=== PATIENT | male | born 1955 | race Caucasian/White ===

== ENCOUNTER 2017-03-08 12:31 | Emergency (ER) | payer OTHER ==
[~2017-03-08] VITALS: Ht 167.6 cm; Wt 90.0 kg
[~2017-03-08 12:31] MED LIST: FINA5TAB4 PO; GEMF600T60 PO; GLIM4TAB PO; INSU100C SQ; LANT3I SC; METO-429 PO; OMEP20CA16 PO; SITA1TAB5 PO; TAMS-14 PO
[2017-03-08 12:35] VITALS: Ht 167.6 cm; Wt 90.0 kg
[2017-03-08] MEDS ORDERED: FLUORESCEIN STRIP RIGHT EYE ONE (13:00)
[2017-03-08] MEDS ORDERED: TETRACAINE 0.5% 4 ML OPH RIGHT EYE ONE (13:00)
[2017-03-08] MEDS ORDERED: CLIN-73 PO (13:25)
[2017-03-08] MEDS ORDERED: VIGA RIGHT EYE (13:25)
--- NOTE | 2017-03-08 14:06 | ERD ---
ER Documentation Chief Complaint Chief Complaint pt bib family with c/o right eye reddness x 2 days, no vision problems HPI 62-year-old male history of type 2 diabetes comes in the right eye redness and drainage for 2 days. The patient describes burning type of pain, with foreign body sensation and describes yellow to white discharge from the eye. He has used Polytrim eyedrops so far for less than 24 hours prescribed by his primary care doctor when he had called about his symptoms. He has used 3 drops without any. History of visual changes from chronic process, diabetes, but denies any acute visual changes. He denies any trauma to the eye, diplopia. ROS All systems reviewed and are negative except as per history of present illness. Medications Home Meds Active Scripts Moxifloxacin Hcl* (Vigamox*) 0.5% - 3 Ml Opht, 1 DROP RIGHT EYE TID, #1 EA Prov:KARINA JAIN PA-C 03/08/17 Clindamycin Hcl* (Clindamycin Hcl*) 300 Mg Capsule, 300 MG PO TID for 7 Days, CAP Prov:KARINA JAIN PA-C 03/08/17 Reported Medications Insulin Lispro (Humalog) 100 Unit/1 Ml Cartridge, 0 SQ WITH MEALS 12/13/15 Sitagliptin Phos/Metformin HCl (Janumet 50-1,000 mg Tablet) 1 Each Tablet, 1 EACH PO BID, TAB 12/13/15 Finasteride* (Finasteride*) 5 Mg Tablet, 5 MG PO DAILY, TAB 12/13/15 Tamsulosin Hcl* (Flomax*) 0.4 Mg Cap.er.24h, 0.4 MG PO BID, CAP 12/13/15 Omeprazole* (Omeprazole*) 20 Mg Capsule.dr, 20 MG PO DAILY, #30 CAP 12/13/15 Gemfibrozil* (Gemfibrozil*) 600 Mg Tablet, 600 MG PO BID, TAB 12/13/15 Insulin Glargine* (Lantus*) 100 Unit/Ml Soln, 20-25 UNIT SC QHS, #1 VIAL 12/13/15 Glimepiride* (Glimepiride*) 4 Mg Tablet, 4 MG PO DAILY, TAB 06/04/14 Metoprolol Tartrate* (Lopressor*) 50 Mg Tab, 50 MG PO BID, TAB 06/04/14 Allergies Allergies: Coded Allergies: No Known Allergy (Unverified , 12/13/15) PMhx/Soc History of Surgery: No Anesthesia Reaction: No Hx Neurological Disorder: No Hx Respiratory Disorders: No Hx Cardiac Disorders: Yes (HTN; HYPERLIPIDEMIA) Hx Psychiatric Problems: No Hx Miscellaneous Medical Probl: Yes (TYPE 1 DM) Hx Alcohol Use: No Hx Substance Use: No Hx Tobacco Use: No Smoking Status: Never smoker Physical Exam Vitals Vital Signs Date Time Temp Pulse Resp B/P Pulse Ox O2 Delivery O2 Flow Rate FiO2 03/08/17 12:35 98.3 84 18 176/84 99 Physical Exam General: Well-developed, well-nourished. The patient appears in no acute distress. HEENT: Head is normocephalic, atraumatic. No scleral icterus. Eye Exam: Visual [place]: Intact in all four quadrants bilaterally Lac ducts/glands: right lower eyelid is edematous, mild. Left eye is normal. Lids w/ evertion: Normal, no foreign body Conj/[place]: There is injection, negative Fluorescein/Andrea's Anterior Chamber: Clear Tonopen readings: 26 and 22 Eyes are equal and reactive to light. Extraocular movements are intact without any pain. Neck: Supple. Nontender. Lungs: Clear to auscultation. Normal air movement. Heart: Regular rate and rhythm. S1 and S2 are normal. No murmurs, gallops, or rubs. Abdomen: Nondistended. Extremities: No clubbing or cyanosis. Moving extremities x 4. No weakness. Neurologic: Alert and oriented 3. No focal deficits. Normal speech and gait. Skin: Normal turgor. No rash or lesions. Results 24 hrs Current Medications Medications (Trade) Dose Ordered Sig/Lillian Route PRN Reason Start Time Stop Time Status Last Admin Dose Admin Fluorescein Sodium (Yilzd-V-Daxmh) 1 strip ONCE ONCE RIGHT EYE 03/08/17 13:00 03/08/17 13:02 DC Tetracaine HCl (Tetracaine 0.5% Steri-Unit Raisa) 1 drop ONCE ONCE RIGHT EYE 03/08/17 13:00 03/08/17 13:02 DC Procedures/MDM 62-year-old male comes in with conjunctivitis of the right eye, the patient's pressures are normal, and there is no evidence of an ulcer, herpetic findings, globe rupture, laceration to the eye, corneal abrasion, foreign bodies. Patient 's history includes redness to the conjunctiva with watering of the eye with yellow discharge. The patient will be treated for conjunctivitis, and there is some [place]-orbital swelling and will be also covered with oral antibiotics additionally. Patient's blood pressure was elevated (>120/80) but appears stable without evidence of hypertension emergency or urgency. The patient was counseled about the risks of hypertension and urged to pursue outpatient monitoring and therapy within a week with their primary care physician. Departure Diagnosis: Primary Impression: Conjunctivitis Condition: Good Patient Instructions: Conjunctivitis, Bacterial Referrals: [facility] Hours: Mon - Fri 9:00 AM - 5:00 PM Additional Instructions: Follow-up with an turbine engine assembler during the next 1-2 days.See the doctor sooner or return here if your condition worsens before your appointment time. KARINA JAIN PA-C Mar 08, 2017 14:06
== END 2017-03-08 13:44 | disposition home or self-care (01) ==
LOC: FTE 12:31
DX: H10.9 Unspecified conjunctivitis (principal); I10 Essential (primary) hypertension; E11.9 Type 2 diabetes mellitus without complications; Z79.4 Long term (current) use of insulin
CPT/HCPCS: Z7502; Z7610; 99284